=== PATIENT | female | born 1930 | race Caucasian/White ===

== ENCOUNTER 2017-06-26 13:56 | Emergency (ER) | payer MEDICARE, OTHER ==
[~2017-06-26] VITALS: Ht 152.4 cm; Wt 54.0 kg
[~2017-06-26 13:56] MED LIST: AMLO2.5T PO; ASPI1TAB69 PO; B-122000 PO; CALCCHW9 CHEW; CYAN5SUB SL; DIGO0.12 PO; DIPH1TAB36 PO; GLIP5TAB8 PO; GLUC500C5 PO; HYDR-3533 PO; METF500T PO; MULT-65 PO; TOPR100T PO; VYTO10TA9 PO
[2017-06-26 14:06] VITALS: BP 158/70; PULSE 62; RESP 16; TEMP 97.9; O2SAT 95
[2017-06-26] MEDS ORDERED: SODIUM CHLOR 0.9% 1000 ML INJ 1,000 ML IV SCH (14:25)
[2017-06-26] MEDS ORDERED: FAMOTIDINE 20 MG/2 ML VIAL IV PUSH ONE (14:30)
[2017-06-26] MEDS ORDERED: SODIUM CHLORIDE 0.9% FLUSH 10 ML FLUSH IV FLUSH PRN (14:30)
[2017-06-26] MEDS ORDERED: LIPI40TA PO (14:32)
[2017-06-26] MEDS ORDERED: ASPI81CH7 CHEW (14:32)
[2017-06-26] MEDS ORDERED: FLUO1TAB3 PO (14:32)
[2017-06-26] MEDS ORDERED: GLIP10TA6 PO (14:32)
[2017-06-26 14:33] VITALS: O2SAT 98
--- NOTE | 2017-06-26 14:34 | PD ---
HPI Chief Complaint: Abdominal Pain Time Seen by Provider: 14:20 Travel History International Travel<30 days: No Contact w/Intl Traveler<30days: No Traveled to known affect area: No History of Present Illness HPI 87-year-old female complains of epigastric and right upper quadrant abdominal pain. Patient states that the pain started 2 weeks ago and has been persistent since then. Patient states the pain in cramping pain and sharp pain localized to the epigastric and right upper quadrant the abdomen. Patient denies any pain radiation. Patient denies any nausea vomiting diarrhea. Patient denies any dysuria or frequency. Patient status post hysterectomy and appendectomy in the past. Patient denies any chest pain or shortness of breath. Patient denies any back pain. Patient denies any fever chills. On a scale of 1-10 the pain is a 7. PFSH Past Medical History Arthritis: Yes Cancer: Yes (LUNG breast skin) Cardiovascular Problems: Yes High Cholesterol: Yes Chemotherapy: Yes (right breast cancer) Diabetes: Yes Patient Takes Glucophage: Yes (1999) Diminished Hearing: Yes Endocrine: Yes Gastrointestinal Disorders: Yes (H-PYLORI) GERD: Yes Glaucoma: No Genitourinary: No Hepatitis: No Hiatal Hernia: Yes Hypertension: Yes Immune Disorder: No Musculoskeletal: Yes Neurologic: No Psychiatric: No Reproductive: No Respiratory: Yes Immunizations Current: Yes Radiation Therapy: Yes Thyroid Disease: No Tetanus Vaccination: < 5 Years Influenza Vaccination: No ?: Not Past Surgical History Abdominal Surgery: Yes (appendectomy) Appendectomy: Yes (1989) Cardiac Surgery: No Ear Surgery: No Endocrine Surgery: No Eye Surgery: Yes (melissa cataract surgery) Genitourinary Surgery: No Gynecologic Surgery: Yes (hysterectomy ) Hysterectomy: Yes (1979) Neurologic Surgery: No Oral Surgery: No Pacemaker: No Thoracic Surgery: Yes (RIGHT BREAST LUMPECTOMY) Other Surgery: Yes (RIGHT MIDDLE LOBECTOMY) Social History Alcohol Use: Yes (OCCASSIONALLY) Tobacco Use: No Substance Use: No Allergies-Medications (Allergen,Severity, Reaction): Coded Allergies: No Known Allergies (Verified Adverse Reaction, Unknown, 06/26/17) Reported Meds & Prescriptions Reported Meds & Active Scripts Active Reported Lipitor (Atorvastatin Calcium) 40 Mg Tab 40 Mg PO HS Aspirin Children's (Aspirin) 81 Mg Chew 81 Mg CHEW DAILY Fluoxetine (Fluoxetine HCl) 20 Mg Tab 20 Mg PO DAILY Glipizide 10 Mg Tab 10 Mg PO BIDAC Take 30 minutes before a meal Multi-Vitamin Daily (Multiple Vitamin) 1 Tab Tab 1 Tab PO DAILY Toprol XL (Metoprolol Succinate) 100 Mg Tab 100 Mg PO HS Metformin (Metformin HCl) 500 Mg Tab 500 Mg PO BIDPC With meals Glucosamine (Glucosamine Sulfate) 500 Mg Cap 500 Mg PO DAILY Digoxin 0.125 Mg Tab 0.125 Mg PO DAILY B-12 (Cyanocobalamin) 2,000 Mcg Tab 2,000 Mcg PO DAILY Amlodipine (Amlodipine Besylate) 2.5 Mg Tab 2.5 Mg PO DAILY Review of Systems General / Constitutional: No: Fever Eyes: No: Visual changes HENT: No: Headaches Cardiovascular: No: Chest Pain or Discomfort Respiratory: No: Shortness of Breath Gastrointestinal: Positive: Abdominal Pain Genitourinary: No: Dysuria Musculoskeletal: No: Pain Skin: No Rash Neurologic: No: Weakness Psychiatric: No: Depression Endocrine: No: Polydipsia Hematologic/Lymphatic: No: Easy Bruising Physical Exam Narrative GENERAL: Well-nourished, well-developed patient. SKIN: Focused skin assessment warm/dry. HEAD: Normocephalic. EYES: No scleral icterus. No injection or drainage. NECK: Supple, trachea midline. No JVD or lymphadenopathy. CARDIOVASCULAR: Regular rate and rhythm without murmurs, gallops, or rubs. RESPIRATORY: Breath sounds equal bilaterally. No accessory muscle use. GASTROINTESTINAL: Abdomen soft, nondistended. Patient has moderate tenderness on palpation epigastric and right upper quadrant of the abdomen. No rebound tenderness. No mass. MUSCULOSKELETAL: No cyanosis, or edema. BACK: Nontender without obvious deformity. No CVA tenderness. Neurologic exam normal. Data Data Last Documented VS Vital Signs Date Time Temp Pulse Resp B/P (MAP) Pulse Ox O2 Delivery O2 Flow Rate FiO2 06/26/17 15:27 62 16 145/65 (91) 98 Room Air 06/26/17 14:06 97.9 Orders Orders Complete Blood Count With Diff (06/26/17 14:25) Comprehensive Metabolic Panel (06/26/17 14:25) Lipase (06/26/17 14:25) Prothrombin Time / Inr (Pt) (06/26/17 14:25) Act Partial Throm Time (Ptt) (06/26/17 14:25) Urinalysis - C+S If Indicated (06/26/17 14:25) Ct Abd/Pel W Iv Contrast(Rout) (06/26/17 14:25) Iv Access Insert/Monitor (06/26/17 14:25) Ecg Monitoring (06/26/17 14:25) Oximetry (06/26/17 14:25) Sodium Chlor 0.9% 1000 Ml Inj (Ns 1000 M (06/26/17 14:25) Sodium Chloride 0.9% Flush (Ns Flush) (06/26/17 14:30) Electrocardiogram (06/26/17 14:25) Famotidine Inj (Pepcid Inj) (06/26/17 14:30) Creatine Kinase (Cpk) (06/26/17 14:49) Troponin I (06/26/17 14:49) Urine Culture (06/26/17 14:30) Iohexol 350 Inj (Omnipaque 350 Inj) (06/26/17 16:02) Labs Laboratory Tests Test 06/26/17 14:30 06/26/17 14:35 Urine Collection Type CLEAN CATCH Urine Color YELLOW Urine Turbidity SLIGHT Urine pH 5.5 Urine Specific [place] 1.025 Urine Protein TRACE mg/dL Urine Glucose (UA) 100 mg/dL Urine Ketones TRACE mg/dL Urine Occult Blood SMALL Urine Nitrite POS Urine Bilirubin NEG Urine Leukocyte Esterase MOD Urine RBC 20-24 /hpf Urine WBC INNUM /hpf Urine WBC Clumps MOD Urine Squamous Epithelial Cells > 8 /hpf Urine Bacteria FEW /hpf Urine Yeast with Hyphae MOD Urine Yeast (Budding) Microscopic Urinalysis Comment CULTURE INDICATED Urine Collection Time 1430 White Blood Count 7.4 TH/MM3 Red Blood Count 3.94 MIL/MM3 Hemoglobin 12.0 GM/DL Hematocrit 36.2 % Mean Corpuscular Volume 92.0 FL Mean Corpuscular Hemoglobin 30.5 PG Mean Corpuscular Hemoglobin Concent 33.2 % Red Cell Distribution Width 13.0 % Platelet Count 208 TH/MM3 Mean Platelet Volume 10.2 FL Neutrophils (%) (Auto) 53.9 % Lymphocytes (%) (Auto) 31.2 % Monocytes (%) (Auto) 8.9 % Eosinophils (%) (Auto) 5.8 % Basophils (%) (Auto) 0.2 % Neutrophils # (Auto) 4.0 TH/MM3 Lymphocytes # (Auto) 2.3 TH/MM3 Monocytes # (Auto) 0.7 TH/MM3 Eosinophils # (Auto) 0.4 TH/MM3 Basophils # (Auto) 0.0 TH/MM3 CBC Comment DIFF FINAL Differential Comment Prothrombin Time 10.7 SEC Prothromb Time International Ratio 1.0 RATIO Activated Partial Thromboplast Time 26.4 SEC Blood Urea Nitrogen 22 MG/DL Creatinine 0.73 MG/DL Random Glucose 216 MG/DL Total Protein 7.2 GM/DL Albumin 3.7 GM/DL Calcium Level 9.7 MG/DL Alkaline Phosphatase 71 U/L Aspartate Amino Transf (AST/SGOT) 12 U/L Alanine Aminotransferase (ALT/SGPT) 26 U/L Total Bilirubin 0.5 MG/DL Sodium Level 138 MEQ/L Potassium Level 3.7 MEQ/L Chloride Level 100 MEQ/L Carbon Dioxide Level 30.0 MEQ/L Anion Gap 8 MEQ/L Estimat Glomerular Filtration Rate 75 ML/MIN Total Creatine Kinase 43 U/L Troponin I LESS THAN 0.02 NG/ML Lipase 175 U/L [facility] Medical Decision Making Medical Screen Exam Complete: Yes Emergency Medical Condition: Yes Interpretation(s) 1501 p.m. EKG shows sinus rhythm nonspecific ST-T wave changes. Unchanged from previous EKG. [address] scan abdomen and pelvis negative acute pathology. CBC within normal limit. Glucose 216. Cardiac enzymes are normal. UA positive with WBC and RBC and bacteria. Differential Diagnosis Differential diagnosis including gastritis, PUD, pancreatitis, cholecystitis, colitis, UTI, pyelonephritis, nephrolithiasis. Narrative Course 87-year-old female with epigastric and right upper quadrant abdominal pain. Rocephin 1 g IV given. Levaquin 500 mg by mouth given. Diagnosis Primary Impression: Pyelonephritis Patient Instructions: General Instructions Additional Instructions: Take medications as directed. Follow-up with personal physician. Return if persistent problem or worse. Med/Other Pt SpecificInfo: Prescription(s) given Scripts Sulfamethoxazole-Trimethoprim (Bactrim DS) 800-160 Mg Tab 1 TAB PO BID for Infection, #28 TAB 0 Refills Prov: Yousif Collins MD 06/26/17 Pantoprazole (Protonix) 40 Mg Tab 40 MG PO DAILY for Reflux, #30 TAB 0 Refills Prov: Yousif Collins MD 06/26/17 Disposition: 01 DISCHARGE HOME Condition: Stable Yousif Collins MD Jun 26, 2017 14:34
[2017-06-26 15:04] LABS: BLOOD, URINE SMALL (NEG); GLUCOSE,URINE 100 mg/dL (NEG); KETONE, URINE TRACE mg/dL (NEG); NITRITE,URINE POS (NEG); PH, URINE 5.5 (5.0-8.5)
[2017-06-26 15:06] LABS: BASOPHIL % 0.2 % (0.0-2.0); EOSINOPHIL # 0.4 TH/MM3 (0-0.4); EOSINOPHIL % 5.8 % (0.0-4.0); HEMATOCRIT 36.2 % (35.0-46.0); HEMO FLAGS DIFF FINAL; LYMPH % 31.2 % (9.0-44.0); LYMPHOCYTE # 2.3 TH/MM3 (1.0-4.8); MEAN CORPUSCULAR HEMOGLOBIN 30.5 PG (27.0-34.0); MEAN CORPUSCULAR HGB CONC 33.2 % (32.0-36.0); MONO % 8.9 % (0.0-8.0); NEUT % 53.9 % (16.0-70.0); PLATELET COUNT 208 TH/MM3 (150-450); RED BLOOD COUNT 3.94 MIL/MM3 (4.00-5.30); WHITE BLOOD COUNT 7.4 TH/MM3 (4.0-11.0)
[2017-06-26 15:14] LABS: METHOD OF COLLECTION CLEAN CATCH; URINE COLOR YELLOW (YELLW/STRAW)
[2017-06-26 15:15] LABS: WBC, URINE INNUM /hpf (0-5)
[2017-06-26 15:16] LABS: BACTERIA, URINE FEW /hpf; SQUAMOUS EPITHELIAL CELL URINE > 8 /hpf (0-5)
[2017-06-26 15:17] LABS: COMMENT (UR) CULTURE INDICATED; CULTURE IF INDICATED CULTURE INDICATED
[2017-06-26 15:19] LABS: CHLORIDE 100 MEQ/L (98-107); POTASSIUM 3.7 MEQ/L (3.5-5.1); SODIUM (NA) 138 MEQ/L (136-145)
[2017-06-26 15:23] LABS: ANION GAP 8 MEQ/L (5-15); APTT (PATIENT) 26.4 SEC (24.3-30.1); BLOOD UREA NITROGEN 22 MG/DL (7-18); PROTHROMBIN TIME - PATIENT 10.7 SEC (9.8-11.6)
[2017-06-26 15:25] LABS: ALT (GPT) 26 U/L (10-53)
[2017-06-26 15:26] LABS: AST (GOT) 12 U/L (15-37); GLOMERULAR FILTRATION RATE 75 ML/MIN (>89)
[2017-06-26 15:27] VITALS: BP 145/65; PULSE 62; RESP 16; O2SAT 98
[2017-06-26 15:27] LABS: TOTAL BILIRUBIN ADULT 0.5 MG/DL (0.2-1.0)
[2017-06-26 15:28] LABS: ALKALINE PHOSPHATASE 71 U/L (45-117)
[2017-06-26 15:36] LABS: CREATINE KINASE 43 U/L (26-192)
[2017-06-26] MEDS ORDERED: IOHEXOL 350 MG/ML 10 ML VIAL (for RAD DIAG) IVCONTRAST ONE (16:02)
--- NOTE | 2017-06-26 16:19 | RADRPT ---
EXAM DATE/TIME: 06/26/2017 15:48 [facility] COMPARISON: No previous studies available for comparison. INDICATIONS : Epigastric and right upper quadrant abdomen pain. IV CONTRAST: 90 cc Omnipaque 350 (iohexol) IV ORAL CONTRAST: No oral contrast ingested. RADIATION DOSE: 6.60 CTDIvol (mGy) MEDICAL HISTORY : Hypertension. Hernia, hiatal. Carcinoma, lung.Carcinoma, breast. SURGICAL HISTORY : Appendectomy. Hysterectomy. ENCOUNTER: Initial ACUITY: 2 weeks PAIN SCALE: 8/10 LOCATION: Right upper quadrant abdomen TECHNIQUE: Volumetric scanning of the abdomen and pelvis was performed. Using automated exposure control and ad justment of the mA and/or kV according to patient size, radiation dose was kept as low as reasonably achievable to obtain optimal diagnostic quality images. DICOM format image data is available electro nically for review and comparison. FINDINGS: There is compensated cardiomegaly without failure. Minimal pleural thickening with nodularity is see n left base anteriorly measuring 1.5 cm, nonspecific, of doubtful significance. The liver is free of focal defects. The spleen, pancreas, adrenals and kidneys are unremarkable There is no ascites or adenopathy Bowel gas pattern is unremarkable Multiple diverticula are seen in the sigmoid colon without diverticulitis. Pelvic contents are otherwise unremarkable. I do not see an etiology for the epigastric and right upper quadrant pain. Review of bone windows reveals only degenerative changes. CONCLUSION: Multiple diverticuli, sigmoid colon. Negative for ascites or adenopathy I do not see an etiology for the patient's abdominal pain. Oscar Ruiz MD FACR on June 26, 2017 at 16:14 Board Certified Radiologist. This report was verified electronically.
[2017-06-26] MEDS ORDERED: BACT800T5 PO (16:28)
[2017-06-26] MEDS ORDERED: PROT40TA PO (16:28)
[2017-06-26] MEDS ORDERED: cefTRIAXone INJ 1,000 MG in SODIUM CHLORIDE 0.9% INJ 100 ML IV ONE (16:30)
[2017-06-26] MEDS ORDERED: LEVOFLOXACIN 500 MG TAB PO ONE (16:30)
[2017-06-26 17:02] VITALS: BP 133/66; PULSE 58; RESP 16; O2SAT 94
--- NOTE | 2017-06-27 16:49 | EKG ---
Date Performed: 06/26/2017 Time Performed: 14:43:35 PTAGE: 87 years EKG: Sinus rhythm LEFT VENTRICULAR HYPERTROPHY AND ST-T CHANGE When compared to previous tracing, sinus rhythm replace s atrial Fibrillation, with slowing of rate, and persistence of nonspecific ST-T wave changes. ABNORM AL ECG PREVIOUS TRACING : 10/18/2010 18.16 DOCTOR: Paul Malik Interpretating Date/Time 06/27/2017 16:47:09
== END 2017-06-26 17:31 | disposition home or self-care (01) ==
LOC: PHED 13:56
DX: N12 Tubulo-interstitial nephritis, not specified as acute or chronic (principal); B96.20 Unspecified Escherichia coli [E. coli] as the cause of diseases classified elsewhere; E11.9 Type 2 diabetes mellitus without complications; I10 Essential (primary) hypertension; R94.31 Abnormal electrocardiogram [ECG] [EKG]; Z79.84 Long term (current) use of oral hypoglycemic drugs; Z85.3 Personal history of malignant neoplasm of breast
CPT/HCPCS: 74177; 80053; 81001; 82550; 83690; 84484; 85025; 85610; 85730; 87077; 87086; 87186; 93005; 96361; 96365; 96375; 99285; J0696; J7030; Q9967

== ENCOUNTER 2017-08-10 14:19 | Emergency (ER) | payer MEDICARE, OTHER ==
[~2017-08-10] VITALS: Ht 154.9 cm; Wt 54.0 kg
[~2017-08-10 14:19] MED LIST changes: -ASPI1TAB69 PO; +ASPI81CH7 CHEW; +BACT800T5 PO; -CALCCHW9 CHEW; -CYAN5SUB SL; -DIPH1TAB36 PO; +FLUO1TAB3 PO; +GLIP10TA6 PO; -GLIP5TAB8 PO; -HYDR-3533 PO; +LIPI40TA PO; +PROT40TA PO; -VYTO10TA9 PO
[2017-08-10 14:31] VITALS: BP 157/69; PULSE 56; RESP 16; TEMP 98.1; O2SAT 95
--- NOTE | 2017-08-10 15:40 | RADRPT ---
EXAM DATE/TIME: 08/10/2017 15:16 [facility] COMPARISON: WRIST RIGHT COMPLETE ([id number]), August 07, 2016, 19:34. INDICATIONS : Fell at home today. Right wrist pain. MEDICAL HISTORY : Hypertension. Hernia, hiatal. Carcinoma, lung.Carcinoma, breast. SURGICAL HISTORY : None. ENCOUNTER: Initial ACUITY: 1 day PAIN SCORE: 0/10 LOCATION: Right proximal Wrist. Lateral side swelling. FINDINGS: Redemonstration of bony remodeling in the distal right radius consistent with prior fracture. Osseous structures otherwise appear intact without evidence for acute bony fracture. Carpus are intact with mild degenerative change. Redemonstration of diffuse osteopenia. Soft tissues are unremarkable withou t any opaque foreign body or emphysema. CONCLUSION: 1. No acute fracture or dislocation. Memo Gaines MD on August 10, 2017 at 15:35 Board Certified Radiologist. This report was verified electronically.
[2017-08-10] MEDS ORDERED: SODIUM CHLORIDE 0.9% FLUSH 10 ML FLUSH IV FLUSH PRN (16:30)
[2017-08-10 16:48] VITALS: O2SAT 98
[2017-08-10 16:49] VITALS: BP 182/67; PULSE 55; RESP 18; O2SAT 95
[2017-08-10 16:52] LABS: BASOPHIL # 0.1 TH/MM3 (0-0.2); BASOPHIL % 0.6 % (0.0-2.0); EOSINOPHIL # 0.6 TH/MM3 (0-0.4); EOSINOPHIL % 6.1 % (0.0-4.0); HEMATOCRIT 38.5 % (35.0-46.0); HEMOGLOBIN 12.9 GM/DL (11.6-15.3); LYMPH % 26.9 % (9.0-44.0); LYMPHOCYTE # 2.7 TH/MM3 (1.0-4.8); MEAN CELL VOLUME 90.6 FL (80.0-100.0); MEAN CORPUSCULAR HEMOGLOBIN 30.4 PG (27.0-34.0); MEAN CORPUSCULAR HGB CONC 33.6 % (32.0-36.0); MEAN PLATELET VOLUME 8.7 FL (7.0-11.0); MONO % 6.9 % (0.0-8.0); MONOCYTE # 0.7 TH/MM3 (0-0.9); NEUT % 59.5 % (16.0-70.0); PLATELET COUNT 235 TH/MM3 (150-450); RED BLOOD COUNT 4.25 MIL/MM3 (4.00-5.30); RED CELL DISTRIBUTION WIDTH 12.7 % (11.6-17.2); WHITE BLOOD COUNT 10.1 TH/MM3 (4.0-11.0)
[2017-08-10 17:00] LABS: CHLORIDE 102 MEQ/L (98-107); SODIUM (NA) 139 MEQ/L (136-145)
[2017-08-10 17:04] LABS: ALBUMIN 3.6 GM/DL (3.4-5.0); BICARBONATE 30.5 MEQ/L (21.0-32.0); CALCIUM 9.1 MG/DL (8.5-10.1); GLUCOSE,RANDOM 97 MG/DL (74-106); LIPASE 189 U/L (73-393)
[2017-08-10 17:05] LABS: BLOOD UREA NITROGEN 14 MG/DL (7-18)
[2017-08-10 17:06] LABS: PROTHROMBIN TIME - PATIENT 10.3 SEC (9.8-11.6)
[2017-08-10 17:07] LABS: ALT (GPT) 29 U/L (10-53); AST (GOT) 20 U/L (15-37); CREATININE 0.52 MG/DL (0.50-1.00); GLOMERULAR FILTRATION RATE 111 ML/MIN (>89)
[2017-08-10 17:09] LABS: TOTAL BILIRUBIN ADULT 0.4 MG/DL (0.2-1.0); TOTAL PROTEIN 7.3 GM/DL (6.4-8.2)
[2017-08-10 17:10] LABS: ALKALINE PHOSPHATASE 77 U/L (45-117)
[2017-08-10] MEDS ORDERED: IOHEXOL 350 MG/ML 10 ML VIAL (for RAD DIAG) IVCONTRAST ONE (17:32)
[2017-08-10 17:43] VITALS: BP 162/70; PULSE 56; RESP 20; O2SAT 96
--- NOTE | 2017-08-10 17:47 | RADRPT ---
EXAM DATE/TIME: 08/10/2017 17:18 [facility] COMPARISON: CT ABDOMEN & PELVIS W CONTRAST, June 26, 2017, 15:48. INDICATIONS : Abdominal pain. IV CONTRAST: 96 cc Omnipaque 350 (iohexol) IV ORAL CONTRAST: No oral contrast ingested. RADIATION DOSE: 5.43 CTDIvol (mGy) MEDICAL HISTORY : Hypercholesterolemia. Hypertension. Cardiovascular diseaseH Py;poncho, Ca lung and breast. SURGICAL HISTORY : Appendectomy. Hysterectomy.Rt lumpectomy, RML Lobectomy.Lamiectomy ENCOUNTER: Initial ACUITY: 2 months PAIN SCALE: 4/10 LOCATION: middle abdomen to right flank. TECHNIQUE: Volumetric scanning of the abdomen and pelvis was performed. Using automated exposure control and ad justment of the mA and/or kV according to patient size, radiation dose was kept as low as reasonably achievable to obtain optimal diagnostic quality images. DICOM format image data is available electro nically for review and comparison. FINDINGS: LOWER LUNGS: Redemonstration of nodular subpleural thickening in the anterior left lung base. Redemonstration of t ree in bud nodular opacities in the right lung base. LIVER: Stable subcentimeter hypodense lesion in segment 2 of liver. Liver is enlarged but otherwise stable i n appearance. Gallbladder is unremarkable by CT. SPLEEN: Normal size without lesion. PANCREAS: Within normal limits. KIDNEYS: Normal in size and shape. There is no mass, stone or hydronephrosis. ADRENAL GLANDS: Within normal limits. VASCULAR: There is no aortic aneurysm. BOWEL/MESENTERY: Moderate sigmoid diverticulosis. No significant inflammatory change to suggest diverticulitis. Bowel otherwise is grossly unremarkable without evidence for obstruction. No significant free fluid or drai nable fluid collection in the abdomen. ABDOMINAL WALL: Within normal limits. RETROPERITONEUM: There is no lymphadenopathy. BLADDER: No wall thickening or mass. REPRODUCTIVE: Uterus is nonvisualized and may be surgically absent. INGUINAL: There is no lymphadenopathy or hernia. MUSCULOSKELETAL: Levoscoliosis of the lumbar spine with associated multilevel degenerative spondylosis. CONCLUSION: 1. No definitive acute abnormality in the abdomen or pelvis. 2. Redemonstration of tree in bud groundglass opacities in the right lower lobe which may reflect chr onic aspiration. 3. Mild hepatic steatosis and hepatomegaly. 4. Sigmoid diverticulosis. Memo Gaines MD on August 10, 2017 at 17:40 Board Certified Radiologist. This report was verified electronically.
--- NOTE | 2017-08-10 17:50 | PD ---
HPI Chief Complaint: Injury Time Seen by Provider: 15:37 Travel History International Travel<30 days: No Contact w/Intl Traveler<30days: No Traveled to known affect area: No History of Present Illness HPI 87-year-old female presents emergency department for evaluation of right wrist pain after falling. Patient was walking down stairs and missed the last step causing her to fall. Patient denies hitting her head or losing consciousness during this event. Patient denies any other injuries outside of the right wrist. The right wrist is mildly ecchymotic and edematous. The patient states the swelling occurred almost instantly after the fall. The patient is ambulatory. The patient denies being on any blood thinners outside a baby aspirin daily. PFSH Past Medical History Arthritis: Yes Cancer: Yes (LUNG breast skin) Cardiovascular Problems: Yes High Cholesterol: Yes Chemotherapy: Yes (right breast cancer) Diabetes: Yes Patient Takes Glucophage: Yes Diminished Hearing: Yes Endocrine: Yes Gastrointestinal Disorders: Yes (H-PYLORI) GERD: Yes Glaucoma: No Genitourinary: No Hepatitis: No Hiatal Hernia: Yes Hypertension: Yes Immune Disorder: No Musculoskeletal: Yes Neurologic: No Psychiatric: No Reproductive: No Respiratory: Yes Immunizations Current: Yes Radiation Therapy: Yes Thyroid Disease: No Influenza Vaccination: Yes Past Surgical History Abdominal Surgery: Yes (appendectomy) Appendectomy: Yes (1989) Cardiac Surgery: No Ear Surgery: No Endocrine Surgery: No Eye Surgery: Yes (melissa cataract surgery) Genitourinary Surgery: No Gynecologic Surgery: Yes (hysterectomy ) Hysterectomy: Yes (1979) Neurologic Surgery: No Oral Surgery: No Pacemaker: No Thoracic Surgery: Yes (RIGHT BREAST LUMPECTOMY) Other Surgery: Yes (RIGHT MIDDLE LOBECTOMY) Social History Alcohol Use: Yes (OCCASSIONALLY) Tobacco Use: No Substance Use: No Allergies-Medications (Allergen,Severity, Reaction): Coded Allergies: No Known Allergies (Verified Adverse Reaction, Unknown, 08/10/17) Reported Meds & Prescriptions Reported Meds & Active Scripts Active Reported Lipitor (Atorvastatin Calcium) 40 Mg Tab 40 Mg PO HS Aspirin Children's (Aspirin) 81 Mg Chew 81 Mg CHEW DAILY Fluoxetine (Fluoxetine HCl) 20 Mg Tab 20 Mg PO DAILY Glipizide 10 Mg Tab 10 Mg PO BIDAC Take 30 minutes before a meal Multi-Vitamin Daily (Multiple Vitamin) 1 Tab Tab 1 Tab PO DAILY Toprol XL (Metoprolol Succinate) 100 Mg Tab 100 Mg PO HS Metformin (Metformin HCl) 500 Mg Tab 500 Mg PO BIDPC With meals Digoxin 0.125 Mg Tab 0.125 Mg PO DAILY B-12 (Cyanocobalamin) 2,000 Mcg Tab 2,000 Mcg PO DAILY Amlodipine (Amlodipine Besylate) 2.5 Mg Tab 2.5 Mg PO DAILY Review of Systems Except as stated in HPI: all other systems reviewed are Neg Physical Exam Narrative GENERAL: Well-nourished, well-developed 87 year old female patient in no acute distress. Nontoxic appearing. Resting comfortably on the stretcher conversing. SKIN: Focused skin assessment warm/dry. HEAD: Normocephalic. Atraumatic. NEUROLOGICAL: Awake and alert. Cranial nerves II through XII intact. Motor and sensory grossly within normal limits. Five out of 5 muscle strength in all muscle groups. Normal speech. EYES: No scleral icterus. No injection or drainage. NECK: Supple, trachea midline. No JVD or lymphadenopathy. CARDIOVASCULAR: Regular rate and rhythm without murmurs, gallops, or rubs. Radial pulses +2 bilaterally. RESPIRATORY: Breath sounds equal and clear to auscultation bilaterally. No accessory muscle use. GASTROINTESTINAL: Abdomen soft, nondistended, very tender to palpation in the epigastric area that radiates to the right lateral aspect of the abdomen. MUSCULOSKELETAL: Right wrist ecchymosis and edema noted. No obvious deformity, erythema, cyanosis. Right hand and wrist neurovascularly intact. BACK: No midline spinal tenderness noted. No obvious deformity, edema, erythema , cyanosis, ecchymosis. No CVA tenderness. Data Data Last Documented VS Vital Signs Date Time Temp Pulse Resp B/P (MAP) Pulse Ox O2 Delivery O2 Flow Rate FiO2 08/10/17 17:43 56 20 162/70 (100) 96 08/10/17 14:31 98.1 Orders Orders Wrist, Complete ([id number]) (08/10/17 ) Complete Blood Count With Diff (08/10/17 16:30) Comprehensive Metabolic Panel (08/10/17 16:30) Lipase (08/10/17 16:30) Prothrombin Time / Inr (Pt) (08/10/17 16:30) Act Partial Throm Time (Ptt) (08/10/17 16:30) Urinalysis - C+S If Indicated (08/10/17 16:30) Ct Abd/Pel W Iv Contrast(Rout) (08/10/17 16:30) Iv Access Insert/Monitor (08/10/17 16:30) Ecg Monitoring (08/10/17 16:30) Oximetry (08/10/17 16:30) Sodium Chloride 0.9% Flush (Ns Flush) (08/10/17 16:30) Electrocardiogram (08/10/17 16:30) Iohexol 350 Inj (Omnipaque 350 Inj) (08/10/17 17:32) Labs Laboratory Tests Test 08/10/17 16:45 08/10/17 18:10 White Blood Count 10.1 TH/MM3 Red Blood Count 4.25 MIL/MM3 Hemoglobin 12.9 GM/DL Hematocrit 38.5 % Mean Corpuscular Volume 90.6 FL Mean Corpuscular Hemoglobin 30.4 PG Mean Corpuscular Hemoglobin Concent 33.6 % Red Cell Distribution Width 12.7 % Platelet Count 235 TH/MM3 Mean Platelet Volume 8.7 FL Neutrophils (%) (Auto) 59.5 % Lymphocytes (%) (Auto) 26.9 % Monocytes (%) (Auto) 6.9 % Eosinophils (%) (Auto) 6.1 % Basophils (%) (Auto) 0.6 % Neutrophils # (Auto) 6.0 TH/MM3 Lymphocytes # (Auto) 2.7 TH/MM3 Monocytes # (Auto) 0.7 TH/MM3 Eosinophils # (Auto) 0.6 TH/MM3 Basophils # (Auto) 0.1 TH/MM3 CBC Comment DIFF FINAL Differential Comment Prothrombin Time 10.3 SEC Prothromb Time International Ratio 1.0 RATIO Activated Partial Thromboplast Time 24.6 SEC Blood Urea Nitrogen 14 MG/DL Creatinine 0.52 MG/DL Random Glucose 97 MG/DL Total Protein 7.3 GM/DL Albumin 3.6 GM/DL Calcium Level 9.1 MG/DL Alkaline Phosphatase 77 U/L Aspartate Amino Transf (AST/SGOT) 20 U/L Alanine Aminotransferase (ALT/SGPT) 29 U/L Total Bilirubin 0.4 MG/DL Sodium Level 139 MEQ/L Potassium Level 3.4 MEQ/L Chloride Level 102 MEQ/L Carbon Dioxide Level 30.5 MEQ/L Anion Gap 7 MEQ/L Estimat Glomerular Filtration Rate 111 ML/MIN Lipase 189 U/L Urine Collection Type CLEAN CATCH Urine Color STRAW Urine Turbidity CLEAR Urine pH 7.5 Urine Specific [place] GREATER THAN 1.035 Urine Protein NEG mg/dL Urine Glucose (UA) NEG mg/dL Urine Ketones NEG mg/dL Urine Occult Blood NEG Urine Nitrite NEG Urine Bilirubin NEG Urine Leukocyte Esterase NEG Urine Squamous Epithelial Cells 0-5 /hpf Urine Amorphous Sediment FEW Microscopic Urinalysis Comment CULT NOT INDICATED Urine Collection Time 1810 [facility] Medical Decision Making Medical Screen Exam Complete: Yes Emergency Medical Condition: Yes Differential Diagnosis Differential diagnoses include but not limited to wrist fracture, wrist sprain, fall, contusion, aortic aneurysm, cholecystitis, gastritis Narrative Course 87-year-old female presents emergency department for evaluation of right wrist pain. X-ray of the right wrist negative for any acute fracture. Patient had previously fractured that wrist. It was noted that the patient has abdominal pain and is extremely tender to palpation of the epigastric region that radiates towards the right lateral aspect of the abdomen. Patient states she's had abdominal pain for one month and her primary care has worked her up for kidney stones. That workup was negative. Patient has another appointment with her primary care on 29 August but would like to get evaluated at our facility for the abdominal pain today. IV obtained, blood works in the lab, CBC, CMP, lipase, PT INR, UA ordered and pending. Abdominal CT ordered and pending. EKG ordered and pending. No acute abnormalities were noted in the blood work. No acute abnormalities noted and the abdominal CAT scan. Patient will be discharged home with instructions for rice therapy to right wrist, and to keep the appointment with her primary care for August 29 for further evaluation. No etiology determined for the abdominal pain at this time. Patient discharged home. Last Impressions Abdomen/Pelvis CT 08/10/17 1630 Signed Impressions: Service Date/Time: Thursday, August 10, 2017 17:18 - CONCLUSION: 1. No definitive acute abnormality in the abdomen or pelvis. 2. Redemonstration of tree in bud groundglass opacities in the right lower lobe which may reflect chronic aspiration. 3. Mild hepatic steatosis and hepatomegaly. 4. Sigmoid diverticulosis. Memo Gaines MD Wrist X-Ray 08/10/17 0000 Signed Impressions: Service Date/Time: Thursday, August 10, 2017 15:16 - CONCLUSION: 1. No acute fracture or dislocation. Memo Gaines MD Diagnosis Primary Impression: Strain of right wrist Qualified Codes: S66.911A - Strain of unspecified muscle, fascia and tendon at wrist and hand level, right hand, initial encounter Additional Impression: Abdominal pain Qualified Codes: R10.9 - Unspecified abdominal pain Referrals: Primary Care Physician Patient Instructions: Abdominal Pain (ED), General Instructions, Wrist Sprain ( ED) Additional Instructions: Please return to emergency department if your symptoms return or worsen. Follow up with your primary care provider. Take medications as prescribed. Therapy to right wrist, rest, ice, elevate Disposition: 01 DISCHARGE HOME Condition: Stable Karma Cannon Aug 10, 2017 17:50
[2017-08-10 18:19] LABS: BILIRUBIN, URINE NEG (NEG); BLOOD, URINE NEG (NEG); GLUCOSE,URINE NEG (NEG); KETONE, URINE NEG (NEG); NITRITE,URINE NEG (NEG); PH, URINE 7.5 (5.0-8.5); URINE LEUKOCYTE ESTERASE NEG (NEG)
[2017-08-10 18:20] LABS: URINE COLOR STRAW (YELLW/STRAW)
[2017-08-10 18:24] LABS: AMORPHOUS SEDIMENT, URINE FEW; SQUAMOUS EPITHELIAL CELL URINE 0-5 /hpf (0-5)
--- NOTE | 2017-08-10 18:39 | PD ---
Physical Exam Date Seen by Provider: Aug 10, 2017 Time Seen by Provider: 17:30 Narrative I, Dr. Schmidt, have reviewed the advance practice practitioner's documentation and am in agreement, met with the patient face to face, made the diagnosis, and the medical decision making was done by me. *My assessment and Findings: Patient seen and evaluated with nurse practitioner , please see nurse practitioner note for further details. She came in complaining of right wrist pain, x-ray did not show any signs of acute bony injuries. She has obvious bruising around the area and likely has some strain. She also complained of abdominal pains and was tender in the epigastrium. Lab work and workup. CAT scan did not show any signs of acute processes. It appears that the patient is being evaluated by primary care physician regarding this issue as well and plan would be to release her with follow-up to primary care physician. Return for any worsening in pain or new symptoms as needed. The plan has discussed with her and she states understanding. Data Data Last Documented VS Vital Signs Date Time Temp Pulse Resp B/P (MAP) Pulse Ox O2 Delivery O2 Flow Rate FiO2 08/10/17 17:43 56 20 162/70 (100) 96 08/10/17 14:31 98.1 Orders Orders Wrist, Complete ([id number]) (08/10/17 ) Complete Blood Count With Diff (08/10/17 16:30) Comprehensive Metabolic Panel (08/10/17 16:30) Lipase (08/10/17 16:30) Prothrombin Time / Inr (Pt) (08/10/17 16:30) Act Partial Throm Time (Ptt) (08/10/17 16:30) Urinalysis - C+S If Indicated (08/10/17 16:30) Ct Abd/Pel W Iv Contrast(Rout) (08/10/17 16:30) Iv Access Insert/Monitor (08/10/17 16:30) Ecg Monitoring (08/10/17 16:30) Oximetry (08/10/17 16:30) Sodium Chloride 0.9% Flush (Ns Flush) (08/10/17 16:30) Electrocardiogram (08/10/17 16:30) Iohexol 350 Inj (Omnipaque 350 Inj) (08/10/17 17:32) Labs Laboratory Tests Test 08/10/17 16:45 08/10/17 18:10 White Blood Count 10.1 TH/MM3 Red Blood Count 4.25 MIL/MM3 Hemoglobin 12.9 GM/DL Hematocrit 38.5 % Mean Corpuscular Volume 90.6 FL Mean Corpuscular Hemoglobin 30.4 PG Mean Corpuscular Hemoglobin Concent 33.6 % Red Cell Distribution Width 12.7 % Platelet Count 235 TH/MM3 Mean Platelet Volume 8.7 FL Neutrophils (%) (Auto) 59.5 % Lymphocytes (%) (Auto) 26.9 % Monocytes (%) (Auto) 6.9 % Eosinophils (%) (Auto) 6.1 % Basophils (%) (Auto) 0.6 % Neutrophils # (Auto) 6.0 TH/MM3 Lymphocytes # (Auto) 2.7 TH/MM3 Monocytes # (Auto) 0.7 TH/MM3 Eosinophils # (Auto) 0.6 TH/MM3 Basophils # (Auto) 0.1 TH/MM3 CBC Comment DIFF FINAL Differential Comment Prothrombin Time 10.3 SEC Prothromb Time International Ratio 1.0 RATIO Activated Partial Thromboplast Time 24.6 SEC Blood Urea Nitrogen 14 MG/DL Creatinine 0.52 MG/DL Random Glucose 97 MG/DL Total Protein 7.3 GM/DL Albumin 3.6 GM/DL Calcium Level 9.1 MG/DL Alkaline Phosphatase 77 U/L Aspartate Amino Transf (AST/SGOT) 20 U/L Alanine Aminotransferase (ALT/SGPT) 29 U/L Total Bilirubin 0.4 MG/DL Sodium Level 139 MEQ/L Potassium Level 3.4 MEQ/L Chloride Level 102 MEQ/L Carbon Dioxide Level 30.5 MEQ/L Anion Gap 7 MEQ/L Estimat Glomerular Filtration Rate 111 ML/MIN Lipase 189 U/L Urine Collection Type CLEAN CATCH Urine Color STRAW Urine Turbidity CLEAR Urine pH 7.5 Urine Specific [place] GREATER THAN 1.035 Urine Protein NEG mg/dL Urine Glucose (UA) NEG mg/dL Urine Ketones NEG mg/dL Urine Occult Blood NEG Urine Nitrite NEG Urine Bilirubin NEG Urine Leukocyte Esterase NEG Urine Squamous Epithelial Cells 0-5 /hpf Urine Amorphous Sediment FEW Microscopic Urinalysis Comment CULT NOT INDICATED Urine Collection Time 1810 MDM Medical Record Reviewed: Yes Supervised Visit with VIRY: Yes Diagnosis Primary Impression: Strain of right wrist Additional Impression: Abdominal pain Disposition: 01 DISCHARGE HOME Condition: Stable Kwabena Schmidt MD Aug 10, 2017 18:39
[2017-08-10 19:01] VITALS: BP 154/75; PULSE 60; RESP 18; O2SAT 98
--- NOTE | 2017-08-10 21:17 | EKG ---
Date Performed: 08/10/2017 Time Performed: 16:55:15 PTAGE: 87 years EKG: SINUS BRADYCARDIA LEFT VENTRICULAR HYPERTROPHY AND ST-T CHANGE ABNORMAL ECG PREVIOUS TRACING : 06/26/2017 14.43 Compared to previous tracing, lateral ST/T changes are now less pronounced. DOCTOR: Everton Cazares Interpretating Date/Time 08/10/2017 21:15:37
== END 2017-08-10 19:03 | disposition home or self-care (01) ==
LOC: PHEFT 14:19 → PHED 19:03
DX: S66.911A Strain of unspecified muscle, fascia and tendon at wrist and hand level, right hand, initial encounter (principal); R10.9 Unspecified abdominal pain; R94.31 Abnormal electrocardiogram [ECG] [EKG]; E78.00 Pure hypercholesterolemia, unspecified; E11.9 Type 2 diabetes mellitus without complications; I10 Essential (primary) hypertension; W10.9XXA Fall (on) (from) unspecified stairs and steps, initial encounter
CPT/HCPCS: 73110; 74177; 80053; 81001; 83690; 85025; 85610; 85730; 93005; 99285; Q9967

== ENCOUNTER 2017-08-21 13:57 | Emergency (ER) | payer MEDICARE, OTHER ==
[~2017-08-21] VITALS: Ht 154.9 cm; Wt 53.0 kg
[~2017-08-21 13:57] MED LIST changes: -BACT800T5 PO; -GLUC500C5 PO; -PROT40TA PO
[2017-08-21 14:28] VITALS: BP 129/60; PULSE 63; RESP 16; TEMP 98.9; O2SAT 95
[2017-08-21] MEDS ORDERED: BACT800T5 PO (16:18)
--- NOTE | 2017-08-21 16:19 | PD ---
HPI Chief Complaint: Skin Problem Time Seen by Provider: 15:38 Travel History International Travel<30 days: No Contact w/Intl Traveler<30days: No Traveled to known affect area: No History of Present Illness HPI 87-year-old female seen here approximately 10 days ago for syncopal fall and right wrist sprain. She has had swelling to the wrist since the injury. She became concerned about area on the wrist she thought was an abscess. She denies fever or chills. She reports swelling to the dorsal aspect of the wrist injury. Reports normal sensation and full range of motion of the wrist. PFSH Past Medical History Hx Anticoagulant Therapy: No Arthritis: Yes Cancer: Yes (LUNG breast skin) Cardiovascular Problems: Yes (htn on meds, ) High Cholesterol: Yes Chemotherapy: Yes (right breast cancer) Diabetes: Yes (type 2) Patient Takes Glucophage: Yes Diminished Hearing: Yes Endocrine: Yes Gastrointestinal Disorders: Yes (H-PYLORI) GERD: Yes Glaucoma: No Genitourinary: No Hepatitis: No Hiatal Hernia: Yes Hypertension: Yes Immune Disorder: No Implanted Vascular Access Dvce: No Musculoskeletal: Yes Neurologic: No Psychiatric: No Reproductive: No Respiratory: Yes Immunizations Current: Yes Radiation Therapy: Yes Thyroid Disease: No Tetanus Vaccination: Unknown ?: Not Past Surgical History Abdominal Surgery: Yes (appendectomy) Appendectomy: Yes (1989) Cardiac Surgery: No Ear Surgery: No Endocrine Surgery: No Eye Surgery: Yes (melissa cataract surgery) Genitourinary Surgery: No Gynecologic Surgery: Yes (hysterectomy ) Hysterectomy: Yes Neurologic Surgery: No Oral Surgery: No Pacemaker: No Thoracic Surgery: Yes (RIGHT BREAST LUMPECTOMY) Other Surgery: Yes (RIGHT MIDDLE LOBECTOMY) Social History Alcohol Use: Yes (OCCASSIONALLY) Tobacco Use: No Substance Use: No Allergies-Medications (Allergen,Severity, Reaction): Coded Allergies: No Known Allergies (Verified Adverse Reaction, Unknown, 08/21/17) Reported Meds & Prescriptions Reported Meds & Active Scripts Active Reported Lipitor (Atorvastatin Calcium) 40 Mg Tab 40 Mg PO HS Aspirin Children's (Aspirin) 81 Mg Chew 81 Mg CHEW DAILY Fluoxetine (Fluoxetine HCl) 20 Mg Tab 20 Mg PO DAILY Glipizide 10 Mg Tab 10 Mg PO BIDAC Take 30 minutes before a meal Multi-Vitamin Daily (Multiple Vitamin) 1 Tab Tab 1 Tab PO DAILY Toprol XL (Metoprolol Succinate) 100 Mg Tab 100 Mg PO HS Metformin (Metformin HCl) 500 Mg Tab 500 Mg PO BIDPC With meals Digoxin 0.125 Mg Tab 0.125 Mg PO DAILY B-12 (Cyanocobalamin) 2,000 Mcg Tab 2,000 Mcg PO DAILY Amlodipine (Amlodipine Besylate) 2.5 Mg Tab 2.5 Mg PO DAILY Review of Systems Except as stated in HPI: all other systems reviewed are Neg Physical Exam Narrative GENERAL: Alert well-appearing elderly female. SKIN: Warm and dry. HEAD: Normocephalic. EYES: No scleral icterus. No injection or drainage. NECK: Supple, trachea midline. No JVD or lymphadenopathy. CARDIOVASCULAR: Regular rate and rhythm without murmurs, gallops, or rubs. RESPIRATORY: Breath sounds equal bilaterally. No accessory muscle use. GASTROINTESTINAL: Abdomen soft, non-tender, nondistended. MUSCULOSKELETAL: No cyanosis. Right upper extremity: Notable swelling to the dorsal aspect of the right wrist. There is mild fluctuance and erythema. 2+ radial pulse. Normal sensation. Brisk cap refill. Data Data Last Documented VS Vital Signs Date Time Temp Pulse Resp B/P (MAP) Pulse Ox O2 Delivery O2 Flow Rate FiO2 08/21/17 14:28 98.9 63 16 129/60 (83) 95 MDM Medical Decision Making Medical Screen Exam Complete: Yes Emergency Medical Condition: Yes Differential Diagnosis Hematoma versus abscess versus swelling from sprain Narrative Course 87-year-old female here with an area of swelling to the dorsal aspect of the wrist after a wrist sprain 10 days ago. She reports the area has been swollen since the injury. She was concerned this area is an abscess. The area is fluctuant with mild erythema. He'll aspirate the area reveal blood. I believe the hematoma. The area does have erythema and mild warmth. Patient reports on Bactrim. Instructed to apply warm compresses. Follow up for recheck in 2 days. Diagnosis Primary Impression: Hematoma Referrals: Primary Care Physician Additional Instructions: Apply warm compresses to the area several times per day. Bactrim as prescribed. Scripts Sulfamethoxazole-Trimethoprim (Bactrim DS) 800-160 Mg Tab 1 TAB PO BID for Infection, #14 TAB 0 Refills Prov: Berenice Cameron 08/21/17 Disposition: 01 DISCHARGE HOME Condition: Stable Berenice Cameron Aug 21, 2017 16:19
== END 2017-08-21 16:24 | disposition home or self-care (01) ==
LOC: PHEFT 13:57
DX: S60.211A Contusion of right wrist, initial encounter (principal); M19.90 Unspecified osteoarthritis, unspecified site; I10 Essential (primary) hypertension; E78.00 Pure hypercholesterolemia, unspecified; E11.9 Type 2 diabetes mellitus without complications; K21.9 Gastro-esophageal reflux disease without esophagitis; W18.30XA Fall on same level, unspecified, initial encounter; Z79.899 Other long term (current) drug therapy
CPT/HCPCS: 99283

== ENCOUNTER 2017-11-23 17:10 | Emergency (ER) | payer MEDICARE, OTHER ==
[~2017-11-23] VITALS: Ht 154.9 cm; Wt 51.3 kg
[~2017-11-23 17:10] MED LIST changes: +BACT800T5 PO
[2017-11-23 17:31] VITALS: BP 128/65; PULSE 73; RESP 16; TEMP 98.3; O2SAT 93
[2017-11-23] MEDS ORDERED: OMEP20TA93 PO (17:43)
[2017-11-23] MEDS ORDERED: TIZA4TAB PO (17:43)
[2017-11-23] MEDS ORDERED: DICL75TA PO (17:43)
[2017-11-23] MEDS ORDERED: ACETAMINOPHEN/HYDROcodone 325 MG/5 MG TAB PO ONE (18:15)
--- NOTE | 2017-11-23 19:00 | RADRPT ---
EXAM DATE/TIME: 11/23/2017 18:29 [facility] COMPARISON: No previous studies available for comparison. INDICATIONS : Trauma due to multiple falls. MEDICAL HISTORY : Hypercholesterolemia. Hypertension. Cardiovascular diseaseH Pylori, Ca lung and breast. SURGICAL HISTORY : Appendectomy. Hysterectomy.Rt lumpectomy, RML Lobectomy.Lamiectomy ENCOUNTER: [facility] ACUITY: 4 - 6 months PAIN SCORE: 5/10 LOCATION: Right hip FINDINGS: Diffuse decreased bone density. Moderate osteoarthritis of the hips. No obvious fractures. CONCLUSION: No acute disease. Jeremias Carr MD on November 23, 2017 at 18:57 Board Certified Radiologist. This report was verified electronically.
--- NOTE | 2017-11-23 19:01 | RADRPT ---
EXAM DATE/TIME: 11/23/2017 18:29 [facility] COMPARISON: No previous studies available for comparison. INDICATIONS : Trauma due to fall. MEDICAL HISTORY : Hypercholesterolemia. Hypertension. Cardiovascular diseaseH Py;poncho, Ca lung and breast. SURGICAL HISTORY : Appendectomy. Hysterectomy.Rt lumpectomy, RML Lobectomy.Lamiectomy ENCOUNTER: Initial ACUITY: 1 day PAIN SCORE: 5/10 LOCATION: Right foot FINDINGS: There is a transverse impacted fracture of the base of the fifth proximal phalanx extending to the ar ticular surface, mildly displaced. Tiny plantar and posterior calcaneal spurs. Mild osteoarthritis of the first MTP joint. Decreased bone density. CONCLUSION: Fifth proximal phalanx fracture. Jeremias Carr MD on November 23, 2017 at 18:57 Board Certified Radiologist. This report was verified electronically.
[2017-11-23] MEDS ORDERED: NORC5TAB PO (19:23)
--- NOTE | 2017-11-23 19:24 | PD ---
HPI Chief Complaint: Musculoskeletal Complaint Time Seen by Provider: 17:58 Travel History International Travel<30 days: No Contact w/Intl Traveler<30days: No Traveled to known affect area: No History of Present Illness HPI This is an 87-year-old female here with right sided low back pain that radiates down into the right hip and thigh. She reports this is been ongoing for 2 weeks. Since the pain started she reports she has had multiple falls onto the right side injuring the foot and possibly the hip. She denies paresthesia or weakness of the extremity. No head injury or loss of consciousness. She now has pain with weightbearing which is slightly relieved with rest. She was seen by her primary doctor who diagnosed her with sciatica and put her on NSAIDs and muscle relaxers with little relief. Symptom severity is moderate. PFSH Past Medical History Hx Anticoagulant Therapy: Yes (asa 81mg) Arthritis: Yes Cancer: Yes (LUNG breast skin) Cardiovascular Problems: Yes (htn on meds) High Cholesterol: Yes Chemotherapy: Yes (right breast cancer) Diabetes: Yes (type 2) Patient Takes Glucophage: Yes Diminished Hearing: Yes Endocrine: Yes Gastrointestinal Disorders: Yes (H-PYLORI) GERD: Yes Glaucoma: No Genitourinary: No Hepatitis: No Hiatal Hernia: Yes Hypertension: Yes Immune Disorder: No Implanted Vascular Access Dvce: No Musculoskeletal: Yes Neurologic: No Psychiatric: No Reproductive: No Respiratory: Yes Immunizations Current: Yes Radiation Therapy: Yes Thyroid Disease: No ?: Not Past Surgical History Abdominal Surgery: Yes (appendectomy) Appendectomy: Yes (1989) Cardiac Surgery: No Ear Surgery: No Endocrine Surgery: No Eye Surgery: Yes (melissa cataract surgery) Genitourinary Surgery: No Gynecologic Surgery: Yes (hysterectomy ) Hysterectomy: Yes Neurologic Surgery: No Oral Surgery: No Pacemaker: No Thoracic Surgery: Yes (RIGHT BREAST LUMPECTOMY) Other Surgery: Yes (RIGHT MIDDLE LOBECTOMY) Social History Alcohol Use: Yes (OCCASSIONALLY) Tobacco Use: No Substance Use: No Allergies-Medications (Allergen,Severity, Reaction): Coded Allergies: No Known Allergies (Verified Adverse Reaction, Unknown, 11/23/17) Reported Meds & Prescriptions Reported Meds & Active Scripts Active [place] (Hydrocodone-Acetaminophen) 5 Mg-325 Mg Tab 1 Tab PO Q6H PRN Reported Omeprazole 20 Mg Tab 20 Mg PO DAILY Tizanidine (Tizanidine HCl) 4 Mg Tab 4 Mg PO TID Diclofenac Sodium DR (Diclofenac Sodium) 75 Mg Tabdr 75 Mg PO BID Lipitor (Atorvastatin Calcium) 40 Mg Tab 40 Mg PO HS Fluoxetine (Fluoxetine HCl) 20 Mg Tab 20 Mg PO DAILY Glipizide 10 Mg Tab 10 Mg PO BIDAC Take 30 minutes before a meal Multi-Vitamin Daily (Multiple Vitamin) 1 Tab Tab 1 Tab PO DAILY Toprol XL (Metoprolol Succinate) 100 Mg Tab 100 Mg PO HS Metformin (Metformin HCl) 500 Mg Tab 500 Mg PO BIDPC With meals Digoxin 0.125 Mg Tab 0.125 Mg PO DAILY B-12 (Cyanocobalamin) 2,000 Mcg Tab 2,000 Mcg PO DAILY Amlodipine (Amlodipine Besylate) 2.5 Mg Tab 2.5 Mg PO DAILY Review of Systems Except as stated in HPI: all other systems reviewed are Neg General / Constitutional: No: Fever Eyes: No: Visual changes HENT: No: Headaches Cardiovascular: No: Chest Pain or Discomfort Respiratory: No: Shortness of Breath Gastrointestinal: No: Abdominal Pain Genitourinary: No: Dysuria Skin: No Rash Neurologic: No: Weakness Physical Exam Narrative GENERAL: Alert and well-appearing 87-year-old femur SKIN: Warm and dry. HEAD: Atraumatic. Normocephalic. EYES: Pupils equal and round. No injection or drainage. ENT: No nasal bleeding or discharge. Mucous membranes pink and moist. NECK: Trachea midline. No cervical midline tenderness CARDIOVASCULAR: Regular rate and rhythm. No chest wall tenderness RESPIRATORY: No accessory muscle use. Clear to auscultation. Breath sounds equal bilaterally. GASTROINTESTINAL: Abdomen soft, non-tender, nondistended. Hepatic and splenic margins not palpable. MUSCULOSKELETAL: Extremities without clubbing, cyanosis, or edema. No obvious deformities. Right lower extremity: +ttp right lateral hip. Patient can flex and externally rotate the hip. +ttp right foot dorsal aspect. No obvious deformity. 2+ DP pulses. Normal sensation. Brisk cap refill. BACK: No CVA tenderness. No rash. No point tenderness on palpation of the spine.+ ttp right sacroiliac joint. NEUROLOGICAL: Awake and alert. No obvious cranial nerve deficits. Motor grossly within normal limits. Five out of 5 muscle strength in the arms and legs. Normal speech. PSYCHIATRIC: Appropriate mood and affect; insight and judgment normal. Data Data Last Documented VS Vital Signs Date Time Temp Pulse Resp B/P (MAP) Pulse Ox O2 Delivery O2 Flow Rate FiO2 11/23/17 19:39 15 11/23/17 17:31 98.3 73 128/65 (86) 93 Orders Orders Hip, Lat Only W Ap Pelvis (11/23/17 ) Foot, Complete ([id number]) (11/23/17 ) Acetamin-Hydrocod 325-5 Mg ([place] 5-325 (11/23/17 18:15) Shoe Post Op (11/23/17 ) Ed Discharge Order (11/23/17 19:25) Shoe Cast (11/23/17 ) MDM Medical Decision Making Medical Screen Exam Complete: Yes Emergency Medical Condition: Yes Differential Diagnosis Sciatica, hip fracture, metatarsal fracture, midfoot sprain Narrative Course 87-year-old female here with right-sided sciatica pain. She is also having right hip and foot pain from a fall. She has a normal neurologic exam. No midline spine tenderness. Her extremities are neurovascularly intact. X-ray of the hip is negative for fracture. X-ray of the right foot shows proximal fifth phalanx fracture. Patient was given [place] and observe. On reexam she reports symptom improvement. All findings were discussed. Patient is stable and ready for discharge Diagnosis Primary Impression: Toe fracture Qualified Codes: S92.504A - Nondisplaced unspecified fracture of right lesser toe(s), initial encounter for closed fracture Additional Impression: Sciatica Qualified Codes: M54.31 - Sciatica, right side Referrals: Pediatric Speech Language Pathologist Primary Care Physician Additional Instructions: Medication as directed. Make a follow-up appointment with podiatry. Return if if new or worsening symptoms Scripts Hydrocodone-Acetaminophen ([place]) 5 Mg-325 Mg Tab 1 TAB PO Q6H Y for PAIN, #4 TAB 0 Refills Prov: Berenice Cameron 11/25/17 Disposition: 01 DISCHARGE HOME Condition: Stable Berenice Cameron Nov 23, 2017 19:24
[2017-11-23 19:39] VITALS: RESP 15
[2017-11-25] MEDS ORDERED: NORC5TAB PO (14:07)
== END 2017-11-23 19:43 | disposition home or self-care (01) ==
LOC: PHEFT 17:10
DX: S92.504A Nondisplaced unspecified fracture of right lesser toe(s), initial encounter for closed fracture (principal); M54.31 Sciatica, right side; M25.551 Pain in right hip; E11.9 Type 2 diabetes mellitus without complications; I10 Essential (primary) hypertension; K21.9 Gastro-esophageal reflux disease without esophagitis; E78.00 Pure hypercholesterolemia, unspecified; W19.XXXA Unspecified fall, initial encounter; Z91.81 History of falling
CPT/HCPCS: 73501; 73630; 99283; L3260